=== PATIENT | male | born 1945 | race Caucasian/White ===

== ENCOUNTER 2018-02-12 05:59 | Day surgery (SDC) | payer MEDICARE, OTHER ==
[~2018-02-12] VITALS: Ht 172.7 cm; Wt 81.3 kg
[2018-02-12] MEDS ORDERED: VITAMIN B650 MG PO (06:21)
[2018-02-12] MEDS ORDERED: CALCIUM CARBON650 M2 PO (06:22)
[2018-02-12] MEDS ORDERED: PRINIVIL10 MG PO (06:22)
[2018-02-12] MEDS ORDERED: HCTZ 25MG TAB25 MG PO (06:22)
[2018-02-12] MEDS ORDERED: PROSCAR 5MG5 MG PO (06:23)
[2018-02-12] MEDS ORDERED: CENTRUM1 TA1 PO (06:23)
[2018-02-12] MEDS ORDERED: ASPIRIN 81M81 MG/TA2 PO (06:24)
[2018-02-12] MEDS ORDERED: OCUVITE1 TA1 PO (06:24)
[2018-02-12] MEDS ORDERED: NATURAL FLAX1000 MG PO (06:24)
[2018-02-12] MEDS ORDERED: OPTIFLEX-G 7501 TAB PO ×2 (06:24→06:28)
[2018-02-12] MEDS ORDERED: POTASSIUM GLUCONATE PO (06:25)
[2018-02-12] MEDS ORDERED: GELATIN PO (06:26)
[2018-02-12] MEDS ORDERED: BOOST HIGH PRO240 ML PO (06:27)
[2018-02-12] MEDS ORDERED: FLOMAX 0.40.4 MG/CAP PO (06:27)
[2018-02-12] MEDS ORDERED: AMBIEN CR 12.12.5 MG PO (06:27)
[2018-02-12] MEDS ORDERED: CITRUCEL WI2 GM/Dose PO (06:28)
[2018-02-12 06:29] VITALS: BP 122/73; PULSE 72; TEMP 98
[2018-02-12 07:35] VITALS: BP 132/92; PULSE 81; TEMP 97.7
[2018-02-12 07:45] VITALS: BP 130/90; PULSE 72
[2018-02-12 08:00] VITALS: BP 127/80; PULSE 52
== END 2018-02-12 08:23 | disposition home or self-care (01) ==
LOC: SDCO 05:59
DX: K22.2 Esophageal obstruction (principal); R13.10 Dysphagia, unspecified
CPT/HCPCS: C1726; J2250; J3010; J7030

== ENCOUNTER 2020-09-21 10:04 | Day surgery (SDC) | payer MEDICARE, OTHER ==
[~2020-09-21] VITALS: Ht 170.2 cm; Wt 89.2 kg
[~2020-09-21 10:04] MED LIST: AMBIEN CR 12.12.5 MG PO; ASPIRIN 81M81 MG/TA2 PO; BOOST HIGH PRO240 ML PO; CALCIUM CARBON650 M2 PO; CENTRUM1 TA1 PO; CITRUCEL WI2 GM/Dose PO; FLOMAX 0.40.4 MG/CAP PO; GELATIN PO; HCTZ 25MG TAB25 MG PO; NATURAL FLAX1000 MG PO; OCUVITE1 TA1 PO; OPTIFLEX-G 7501 TAB PO; POTASSIUM GLUCONATE PO; PRINIVIL10 MG PO; PROSCAR 5MG5 MG PO; VITAMIN B650 MG PO
[2020-09-21 11:51] VITALS: BP 114/86; PULSE 82; TEMP 98.1
[2020-09-21] MEDS ORDERED: VITAMIN B650 MG PO (11:57)
[2020-09-21] MEDS ORDERED: ZESTRIL 10MG10 MG PO (11:58)
[2020-09-21] MEDS ORDERED: FLAXSEED OIL1000 MG PO (12:01)
[2020-09-21] MEDS ORDERED: NATURAL POTASS595 MG PO (12:03)
[2020-09-21] MEDS ORDERED: BOOST HIGH PRO240 ML PO (12:04)
[2020-09-21] MEDS ORDERED: [UNRECOGNIZED DRUG - OTHER] MM (12:04)
[2020-09-21] MEDS ORDERED: CITRUCEL POWDE850 GM PO (12:08)
[2020-09-21 12:50] VITALS: BP 115/98; PULSE 68; TEMP 97.6
[2020-09-21 13:00] VITALS: BP 110/75; PULSE 72
--- NOTE | 2020-09-21 13:10 | NUR ---
IV SITE TO RIGHT HAND DISCONTINUED. NO REDNESS OR SWELLING. PRESSURE APPLIED AND SECURED WITH COTTON AND COBAN
--- NOTE | 2020-09-21 13:30 | NUR ---
CHANGES OUT OF GOWN AND UP TO BATHROOM
--- NOTE | 2020-09-21 13:45 | NUR ---
AT BEDSIDE TO DISCUSS PROCEDURE WITH PATIENT AND SPOUSE
--- NOTE | 2020-09-21 13:58 | NUR ---
HARD COPIES OF EDUCATION AND DISMISSAL INSTRUCTIONS GIVEN TO PATIENT. VERBAL REVIEW OF EDUCATION AND DISMISSAL INSTRUCTIONS DONE WITH PATIENT. PATIENT GIVES VERBAL UNDERSTANDING. PATIENT SIGNS ACKNOWLEDGEMENT OF RECEIPT.
--- NOTE | 2020-09-21 14:01 | NUR ---
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 ASSISTED TO VEHICLE
[2020-09-21 16:48] VITALS: BP 135/92; PULSE 65
== END 2020-09-21 14:01 | disposition home or self-care (01) ==
LOC: SDCO 10:04
DX: K22.2 Esophageal obstruction (principal); Z79.82 Long term (current) use of aspirin; I10 Essential (primary) hypertension; E78.5 Hyperlipidemia, unspecified; N40.0 Benign prostatic hyperplasia without lower urinary tract symptoms
CPT/HCPCS: C1726; J2704; J7120